=== PATIENT | female | born 1965 | race Asian ===

== ENCOUNTER 2016-06-15 19:36 | Emergency (ER) | payer OTHER ==
[~2016-06-15] VITALS: Ht 170.2 cm; Wt 59.1 kg
[~2016-06-15 19:36] MED LIST: CANA300T PO; CLAR10TA7 PO
[2016-06-15 19:38] VITALS: BP 154/74; PULSE 88; RESP 16; TEMP 98.5; O2SAT 98
--- NOTE | 2016-06-15 20:05 | PD ---
HPI Chief Complaint: Abdominal Pain Time Seen by Provider: 19:51 Travel History International Travel<30 days: No Contact w/Intl Traveler<30days: [place] Country Traveled to: [place] Traveled to known affect area: No History of Present Illness HPI 51 y/o female presents with right back and groin pain since Friday. 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 She states yesterday she developed a rash and the pain got worse. She denies any upper abdominal pain, vomiting, diarrhea, urinary symptoms or other concurrent complaints. Quality of pain is sharp. Severity is intense per patient. She states her last sugar was 160. PFSH Past Medical History Cancer: No Cardiovascular Problems: No Diabetes: Yes (TYPE 2 ) Endocrine: Yes Genitourinary: No Hepatitis: No Hiatal Hernia: No Immune Disorder: No Musculoskeletal: Yes (ARTHRITIS IN NECK) Neurologic: No Psychiatric: No Respiratory: No Thyroid Disease: No Past Surgical History AICD: No Gynecologic Surgery: Yes (C SECTION 2005) Hysterectomy: Yes (PARTIAL ) Joint Replacement: No Pacemaker: No Social History Tobacco Use: No Substance Use: No Allergies-Medications (Allergen,Severity, Reaction): Coded Allergies: Sulfa (Verified Allergy, Severe, 06/15/16) Reported Meds & Prescriptions Reported Meds & Active Scripts Active Percocet (Oxycodone-Acetaminophen) 5-325 mg Tab 1 Tab PO Q6H PRN Valtrex (Valacyclovir HCl) 1 Gm Tab 1,000 Mg PO TID 7 Days Reported Vitamin D3 (Cholecalciferol) 5,000 Unit Chew 5,000 Units CHEW DAILY Metformin (Metformin HCl) 1,000 Mg Tab 1,000 Mg PO BIDPC With meals Lisinopril 2.5 Mg Tab 2.5 Mg PO DAILY Claritin (Loratadine) 10 Mg Tab 10 Mg PO DAILY Invokana (Canagliflozin) 300 Mg Tab 300 Mg PO DAILY Take before 1st meal of day. Review of Systems Except as stated in HPI: all other systems reviewed are Neg Physical Exam Narrative GENERAL: Well-nourished, well-developed patient. SKIN: Vesicular rash noted in dermatome distribution to the right buttock and groin HEAD: Normocephalic and atraumatic. EYES: No injection or drainage. ENT: No nasal drainage noted. NECK: Supple, trachea midline. CARDIOVASCULAR: Regular rate and rhythm RESPIRATORY: Breath sounds equal bilaterally. No accessory muscle use. GASTROINTESTINAL: Abdomen soft, non-tender, nondistended. EXTREMITIES: No edema. BACK: Nontender without obvious deformity. NEUROLOGICAL: Awake and alert. Motor and sensory grossly within normal limits. Normal speech. Data Data Last Documented VS Vital Signs Date Time Temp Pulse Resp B/P Pulse Ox O2 Delivery O2 Flow Rate FiO2 06/15/16 19:38 98.5 88 16 154/74 98 Orders Oxycodone-Acetamin 5-325 Mg (Percocet (06/15/16 20:15) [facility] Medical Decision Making Medical Screen Exam Complete: Yes Emergency Medical Condition: Yes Medical Record Reviewed: Yes (past history confirmed) Differential Diagnosis Shingles, musculoskeletal, cyst Narrative Course Patient with dermatome distribution of vesicular rash in different stages consistent with shingles. We'll place on Valtrex and provide Percocet for pain control. Give first dose here. drove her here. She is happy with this plan and advised outpatient follow-up and recheck. Given return instructions. Procedures EKG Not Completed: Diagnosis Primary Impression: Shingles Qualified Code: B02.9 - Herpes zoster without complication Patient Instructions: General Instructions Additional Instructions: follow with primary on friday for recheck, return as needed, percocet as needed for severe pain (don't take while driving) Med/Other Pt SpecificInfo: Prescription(s) given Scripts Oxycodone-Acetaminophen (Percocet)5-325 mg Tab1 Tab PO Q6H PRN (PAIN) #15 TAB Prov:Jes Warner MD 06/15/16 Valacyclovir (Valtrex)1 Gm Tab1,000 Mg PO TID 7 Days Ref 0 Prov:Jes Warner MD 06/15/16 Disposition: 01 DISCHARGE HOME Condition: Stable Jes Warner MD Jun 15, 2016 20:05 Jes Warner MD Jun 15, 2016 20:05
[2016-06-15] MEDS ORDERED: LISI2.5T3 PO (20:06)
[2016-06-15] MEDS ORDERED: LORA-361 PO (20:06)
[2016-06-15] MEDS ORDERED: METF1000 PO (20:06)
[2016-06-15] MEDS ORDERED: VITA500030 CHEW (20:06)
[2016-06-15] MEDS ORDERED: CANA300T PO (20:06)
[2016-06-15] MEDS ORDERED: VALT1TAB PO (20:07)
[2016-06-15] MEDS ORDERED: PERC5TAB12 PO (20:07)
[2016-06-15] MEDS ORDERED: oxyCODONE/ACETAMINOPHEN 5 MG/325 MG TAB PO ONE (20:15)
== END 2016-06-15 20:56 | disposition home or self-care (01) ==
LOC: NEPC 19:36
DX: B02.9 Zoster without complications (principal)
CPT/HCPCS: 99283